=== PATIENT | male | born 1935 | race Caucasian/White ===

== ENCOUNTER 2017-08-20 14:22 | Outpatient (RCR) | payer MEDICARE, BC | END 2017-08-26 | LOC: OT 14:22 | PROVIDERS: ATTEND Specialist | DX: S52.691D Other fracture of lower end of right ulna, subsequent encounter for closed fracture with routine healing (principal); M25.631 Stiffness of right wrist, not elsewhere classified | CPT/HCPCS: 97110 ×2; 97139; 97165; G8987; G8988 ==

== ENCOUNTER 2018-02-15 12:04 | Emergency (ER) | payer MEDICARE, BC ==
[~2018-02-15] VITALS: Ht 175.3 cm; Wt 77.1 kg
[2018-02-15] MEDS ORDERED: AMOXICILLIN500 MG PO (12:54)
[2018-02-15 13:04] VITALS: BP 143/79
== END 2018-02-15 13:14 | disposition home or self-care (01) ==
LOC: FSED 12:04
DX: R30.0 Dysuria (principal); M54.5 Low back pain; N30.91 Cystitis, unspecified with hematuria; I10 Essential (primary) hypertension; Z85.46 Personal history of malignant neoplasm of prostate
CPT/HCPCS: 99283

== ENCOUNTER 2018-09-19 12:12 | Emergency (ER) | payer MEDICARE, BC ==
[~2018-09-19] VITALS: Ht 175.3 cm; Wt 77.1 kg
[~2018-09-19 12:12] MED LIST: AMOXICILLIN500 MG PO
[2018-09-19] MEDS ORDERED: TETANUS/DIPHTHERIA TOX ADULT 0.5 ML SYR IM ONE (12:45)
--- NOTE | 2018-09-19 13:33 | Diagnostic Imaging Report ---
Exam: Left hand radiographs-3 views History: Status post fall. Comparison: None. Findings: No evidence of acute fracture, malalignment, or radiopaque foreign body. There is a soft tissue laceration between the interspace between the proximal fourth and fifth digit. Ring partially obscures visualization of the fourth digit proximal phalanx. Punctate well-corticated bony structure adjacent to the thumb proximal phalanx base could reflect sequela of prior trauma. There is diffuse osteopenia. Mild degenerative changes at the base of the first carpometacarpal joint. Impression: No acute osseous abnormality. Soft tissue laceration at the interspace between the proximal fourth and fifth digits without foreign body. Signed by: Dr. Coco Swift MD on 09/19/2018 1:30 PM
== END 2018-09-19 14:02 | disposition home or self-care (01) ==
LOC: FSED 12:12
DX: S61.412A Laceration without foreign body of left hand, initial encounter (principal); W18.30XA Fall on same level, unspecified, initial encounter; Y92.008 Other place in unspecified non-institutional (private) residence as the place of occurrence of the external cause; I10 Essential (primary) hypertension; Z85.46 Personal history of malignant neoplasm of prostate
CPT/HCPCS: 90471; 90714; 99284

== ENCOUNTER 2018-10-01 14:35 | Emergency (ER) | payer MEDICARE, BC ==
[~2018-10-01] VITALS: Ht 175.3 cm; Wt 77.1 kg
--- OUTSIDE RECORDS SUMMARY | 2018-10-01 16:33 | XMS REPORT ---
Author Author [facility] Address Unknown Phone Unavailable Care Team Providers Care Brand Sales Consultant Name Role Phone Garima LÓPEZ Unavailable Unavailable Problems This patient has no known problems. Allergies, Adverse Reactions, Alerts This patient has no known allergies or adverse reactions. Medications This patient has no known medications. Results Test Description Test Time Test Comments Text Results Atomic Results Result Comments HAND 3 VIEW - [facility] 2018-09-19 13:26:00 [place] [address] Patient Name: YEFRI THOMAS JR MR #: [id number] : 1935 Age/Sex: 83/M Req #: [id number] Adm Physician: Ordered by: TARA LÓPEZ MD Report #: [id number] Location: [facility] Room/Bed: Procedure: [id number] HOPD/HAND 3 VIEW - [facility] Exam Date: 09/19/18 Exam Time: 1220 REPORT STATUS: Signed Exam: Left hand radiographs-3 views History: Status post fall. Comparison: None. Findings: No evidence of acute fracture, malalignment, or radiopaque foreign body. There is a soft tissue laceration between the interspace between the proximal fourth and fifth digit. Ring partially obscures visualization of the fourth digit proximal phalanx. Punctate well-corticated bony structure adjacent to the thumb proximal phalanx base could reflect sequela of prior trauma. There is diffuse osteopenia. Mild degenerative changes at the base of the first carpometacarpal joint. Impression: No acute osseous abnormality. Soft tissue laceration at the interspace between the proximal fourth and fifth digits without foreign body. Signed by: Dr. Ronny Marr MD on 09/19/2018 1:30 PM Dictated By: RONNY MARR MD 133 Transcribed By: ZACH on 09/19/18 1333 COPY TO: TARA LÓPEZ MD
== END 2018-10-01 14:53 | disposition home or self-care (01) ==
LOC: FSED 14:35
DX: Z48.02 Encounter for removal of sutures (principal)
CPT/HCPCS: 99282; S0630

== ENCOUNTER 2019-01-28 13:37 | Emergency (ER) | payer MEDICARE, BC ==
[~2019-01-28] VITALS: Ht 175.3 cm; Wt 81.6 kg
[2019-01-28] MEDS ORDERED: LIDOCAINE 1% W/EPINEPHRINE 20 ML VIAL ONE (14:06)
--- NOTE | 2019-01-28 14:10 | NUR ---
Tetanus is UTD and not needed at this time.
[2019-01-28] MEDS ORDERED: LIDOCAINE 2% /EPINEPHRINE 20 ML SDV INJ ONE (14:15)
--- NOTE | 2019-01-28 15:00 | Diagnostic Imaging Report ---
Examination: CT BRAIN WITHOUT CONTRAST History:Fall with head injury Comparison studies:None Technique: Axial images were obtained from the skull base to the vertex. Coronal and sagittal images reconstructed from the axial data. Dose modulation, iterative reconstruction, and/or weight based adjustment of the mA/kV was utilized to reduce the radiation dose to as low as reasonably achievable. Intravenous contrast: None Findings: Scalp: There is a small parietal posterior scalp hematoma with adjacent cutaneous base surgical roseann. Bones: No fractures, blastic or lytic lesions. Brain sulci: Appropriate for age. Ventricles: Normal in size and configuration. No hydrocephalus. Extra-axial space: No abnormalities. Parenchyma: No masses, hemorrhage, or acute or chronic cortical based vascular insults.. Sellar/suprasellar region: No abnormalities. Craniocervical junction: Patent foramen magnum. No Chiari one malformation. Incidental findings: None. Impression: 1. No acute intracranial abnormalities. 2. Small posterior parietal vertex scalp hematoma. Signed by: Dr. Tiffany Richards M.D. on 01/28/2019 2:57 PM
[2019-01-28 15:53] VITALS: BP 133/76
== END 2019-01-28 15:43 | disposition home or self-care (01) ==
LOC: FSED 13:37
DX: S09.90XA Unspecified injury of head, initial encounter (principal); S01.01XA Laceration without foreign body of scalp, initial encounter; W11.XXXA Fall on and from ladder, initial encounter; Y92.008 Other place in unspecified non-institutional (private) residence as the place of occurrence of the external cause; I10 Essential (primary) hypertension
CPT/HCPCS: 12002; 70450; 96372; 99283; J2001

== ENCOUNTER 2019-02-07 11:11 | Emergency (ER) | payer BC, MEDICARE ==
[~2019-02-07] VITALS: Ht 175.3 cm; Wt 81.6 kg
== END 2019-02-07 11:21 | disposition home or self-care (01) ==
LOC: FSED 11:11
DX: Z48.02 Encounter for removal of sutures (principal); I10 Essential (primary) hypertension; Z85.46 Personal history of malignant neoplasm of prostate

== ENCOUNTER 2020-09-14 12:11 | Emergency (ER) | payer MEDICARE, BC ==
[~2020-09-14] VITALS: Ht 175.3 cm; Wt 84.2 kg
[2020-09-14] MEDS ORDERED: ALTACE2.5 MG PO (12:28)
[2020-09-14] MEDS ORDERED: NORVASC10 MG PO (12:28)
[2020-09-14] MEDS ORDERED: TETANUS/DIPHTHERIA TOX ADULT 0.5 ML SYR ONE (13:10)
[2020-09-14] MEDS ORDERED: BACITRACIN ZINC 0.9GM TP ONE ×2 (13:12→13:15)
[2020-09-14] MEDS ORDERED: CEPHALEXIN500 MG PO (13:15)
[2020-09-14] MEDS ORDERED: TETANUS/DIPHTHERIA TOX ADULT 0.5 ML SYR IM ONE (13:15)
== END 2020-09-14 13:24 | disposition home or self-care (01) ==
LOC: FSED 12:33
DX: L03.116 Cellulitis of left lower limb (principal); T24.202A Burn of second degree of unspecified site of left lower limb, except ankle and foot, initial encounter; X17.XXXA Contact with hot engines, machinery and tools, initial encounter; I10 Essential (primary) hypertension; Z85.46 Personal history of malignant neoplasm of prostate
CPT/HCPCS: 90471; 90714; 96372; 99283

== ENCOUNTER 2021-01-18 12:52 | Emergency (ER) | payer MEDICARE, BC ==
[~2021-01-18] VITALS: Ht 175.3 cm; Wt 80.0 kg
[~2021-01-18 12:52] MED LIST changes: +ALTACE2.5 MG PO; +CEPHALEXIN500 MG PO; +NORVASC10 MG PO
== END 2021-01-18 14:45 | disposition home or self-care (01) ==
LOC: FSED 12:58
DX: S00.81XA Abrasion of other part of head, initial encounter (principal); V03.90XA Pedestrian on foot injured in collision with car, pick-up truck or van, unspecified whether traffic or nontraffic accident, initial encounter; Y92.488 Other paved roadways as the place of occurrence of the external cause; I10 Essential (primary) hypertension; Z85.46 Personal history of malignant neoplasm of prostate
CPT/HCPCS: 70450; 99283

== ENCOUNTER 2021-08-04 14:34 | Emergency (ER) | payer MEDICARE, BC, OTHER ==
[~2021-08-04] VITALS: Ht 175.3 cm; Wt 79.8 kg
[2021-08-04] MEDS ORDERED: CEPHALEXIN500 MG PO (17:08)
[2021-08-04] MEDS ORDERED: BACITRACIN ZINC 0.9GM TP ONE (17:19)
== END 2021-08-04 17:35 | disposition home or self-care (01) ==
LOC: FSED 15:10
DX: S01.81XA Laceration without foreign body of other part of head, initial encounter (principal); W01.0XXA Fall on same level from slipping, tripping and stumbling without subsequent striking against object, initial encounter; Y93.01 Activity, walking, marching and hiking; Y92.008 Other place in unspecified non-institutional (private) residence as the place of occurrence of the external cause; I10 Essential (primary) hypertension; Z85.46 Personal history of malignant neoplasm of prostate
CPT/HCPCS: 99283

== ENCOUNTER 2021-08-12 10:28 | Emergency (ER) | payer MEDICARE, BC ==
[~2021-08-12] VITALS: Ht 175.3 cm; Wt 77.1 kg
== END 2021-08-12 11:35 | disposition home or self-care (01) ==
LOC: FSED 10:32
DX: Z48.02 Encounter for removal of sutures (principal); I10 Essential (primary) hypertension; Z85.46 Personal history of malignant neoplasm of prostate
CPT/HCPCS: 99282; S0630

== ENCOUNTER 2022-03-13 09:48 | Emergency (ER) | payer MEDICARE, BC ==
[~2022-03-13] VITALS: Ht 175.3 cm; Wt 82.2 kg
[2022-03-13] MEDS ORDERED: DOXAZOSIN MESYLA2 MG PO (10:06)
[2022-03-13] MEDS ORDERED: K DUR10 MEQ PO (10:06)
[2022-03-13] MEDS ORDERED: CEPHALEXIN500 MG PO ×2 (10:08→10:10)
== END 2022-03-13 10:14 | disposition home or self-care (01) ==
LOC: FSED 09:52
DX: M54.50 Low back pain, unspecified (principal); N39.0 Urinary tract infection, site not specified; I10 Essential (primary) hypertension; G62.9 Polyneuropathy, unspecified; Z85.46 Personal history of malignant neoplasm of prostate
CPT/HCPCS: 81003; 99283